=== PATIENT | female | born 1935 | race Caucasian/White ===

== ENCOUNTER 2019-07-10 15:51 | Emergency (ER) | payer OTHER ==
[2019-07-10 16:41] VITALS: TEMP 98; BMI 26.5
[2019-07-10] MEDS ORDERED: LIDOCAINE HCL 2% (20ML MULTI-DOSE VIAL) ONE (18:27)
--- NOTE | 2019-07-10 18:33 | PN ---
Progress Note (short form) - Note Progress Note: Pt seen and examined in the ER. She is an 83 year old female patient with Parkinson's, a resting tremor, (other?) who fell today, sustaining an injury to her left wrist. AVSS PE Pt in NAD, A and O x 3. Left wrist + moderate swelling LUE is grossly NVI. Limited ROM bc of pain. X-rays Show a highly comminuted, displaced, intra articular left distal radius fracture. Imp 83 yo R hand dom F with Parkinson's disease, a resting tremor and a displaced, intra articular left distal radius fracture. Rec We discussed the options. I am not recommending surgery for her, although I did tell her that her results would likely be better with surgery than without. A closed reduction was performed in the ER after a hematoma block with 10cc 2% Lidocaine was done. Put into a provisional volar splint. Sling, elevation. F/U in my office this or friday for another closed reduction and casting, after the swelling has subsided.
--- NOTE | 2019-07-10 18:49 | PDOC ---
Documentation entered by Linsey Rahman SCRIBE, acting as scribe for Tam Kay MD. Tam Kay MD: This documentation has been prepared by the Josiah carcamo Maria, SCRIBE, under my direction and personally reviewed by me in its entirety. I confirm that the documentation accurately reflects all work, treatment, procedures, and medical decision making performed by me. History of Present Illness - General Chief Complaint: Injury Stated Complaint: FELL OUT OF BED, LEFT ARM BROKEN - History of Present Illness Initial Comments: 07/10/19 16:47 Patient is an 83 year old female with a significant PMH of HTN, Parkinson's disease, PVD, GERD, DVT (coumadin) depression, and seizures who presents to the ED, via EMS from [facility] s/p fall. Patient states she was in bed last night trying to reach for something when she fell on her left wrist, denies head injury or LOC. Patient states she had a headache after falling last night and this morning. Patient states chronic left hip pain, denies new or worsening pain. She denies any trauma to her head. She denies recent fevers, chills, or dizziness. She denies recent nausea, vomiting, diarrhea or constipation. She denies recent dysuria, frequency, urgency or hematuria. She denies recent chest pain or shortness of breath. Allergies: Aspirin,hydrocodone Social history: Nonsmoker. Denies EtOH use and recreational drug use. PCP: Dr. Downing 07/10/19 17:12 Past History - Past Medical History Allergies/Adverse Reactions: Allergies Allergy/AdvReac Type Severity Reaction Status Date / Time aspirin Allergy Intermediate NAUSEA,VOMI Verified 03/28/16 13:53 TING hydrocodone [Hydrocodone] Allergy Intermediate NAUSEA,VOMI Verified 03/28/16 13: 53 TING Home Medications: Ambulatory Orders Carbidopa/Levodopa [Carbidopa-Levodopa 25-100 Tab] 1 each PO Q6H 06/30/16 Duloxetine HCl [Cymbalta -] 30 mg PO DAILY 06/30/16 Furosemide [Lasix -] 40 mg PO DAILY 06/30/16 Lisinopril [Prinivil] 5 mg PO DAILY 06/30/16 Meclizine HCl [Motion-Time] 25 mg PO BID 06/30/16 O'Brien-3/Dha/Epa/Fish Oil [Fish Oil 500 mg Softgel] 1 each PO BID 06/30/16 Oxybutynin Chloride [Ditropan Xl] 10 mg PO DAILY 06/30/16 Phenytoin Sodium 100 mg PO TID 06/30/16 Primidone [Mysoline] 250 mg PO BID 06/30/16 Warfarin Sodium [Coumadin] 2 mg PO ASDIR 06/30/16 Carbidopa/Levodopa 25/100 [Sinemet 25/100 -] 1 each PO QID tablet 07/01/16 Duloxetine HCl [Cymbalta -] 60 mg PO DAILY capsule. 07/01/16 Furosemide [Lasix -] 20 mg PO DAILY tablet 07/01/16 Lisinopril [Prinivil] 5 mg PO DAILY tablet 07/01/16 Meclizine HCl [Antivert -] 25 mg PO BID PRN #0 tablet 07/01/16 Phenytoin Na Extended [Dilantin -] 100 mg PO TID capsule 07/01/16 Primidone [Mysoline -] 250 mg PO BID tablet 07/01/16 Ranitidine HCl 150 mg PO DAILY 07/10/19 Anemia: No Asthma: No Cancer: No Cardiac Disorders: No CVA: No COPD: No CHF: No Dementia: No Diabetes: No GI Disorders: No Disorders: No HTN: Yes Hypercholesterolemia: No Liver Disease: No Seizures: Yes Thyroid Disease: No - Surgical History Abdominal Surgery: Yes (Hysterectomy) Appendectomy: No Cardiac Surgery: No Cholecystectomy: No Lung Surgery: No Neurologic Surgery: No Orthopedic Surgery: Yes (L TOTAL KNEE, BUNIONECTOMY (L)) - Psycho Social/Smoking Cessation Hx Smoking History: Never smoked Have you smoked in the past 12 months: No Information on smoking cessation initiated: No Hx Alcohol Use: No Drug/Substance Use Hx: No Substance Use Type: None Hx Substance Use Treatment: No Review of Systems - Review of Systems Able to Perform ROS?: Yes Comments:: 07/10/19 16:47 CONSTITUTIONAL: Absent: fever, chills, diaphoresis, generalized weakness, malaise, loss of appetite HEENT: Absent: rhinorrhea, nasal congestion, throat pain, throat swelling, difficulty swallowing, mouth swelling, ear pain, eye pain, visual Changes CARDIOVASCULAR: Absent: chest pain, syncope, palpitations, irregular heart rate, lightheadedness , peripheral edema RESPIRATORY: Absent: cough, shortness of breath, dyspnea with exertion, orthopnea, wheezing, stridor, hemoptysis GASTROINTESTINAL: Absent: abdominal pain, abdominal distension, nausea, vomiting, diarrhea, constipation, melena, hematochezia GENITOURINARY: Absent: dysuria, frequency, urgency, hesitancy, hematuria, flank pain, genital pain MUSCULOSKELETAL: +left wrist pain Absent: myalgia, arthralgia, joint swelling SKIN: Absent: rash, itching, pallor HEMATOLOGIC/IMMUNOLOGIC: Absent: easy bleeding, easy bruising, lymphadenopathy, frequent infections ENDOCRINE: Absent: unexplained weight gain, unexplained weight loss, heat intolerance, cold intolerance NEUROLOGIC: Absent: headache, focal weakness or paresthesias, dizziness, unsteady gait, seizure, mental status changes, bladder or bowel incontinence PSYCHIATRIC: Absent: anxiety, depression, suicidal or homicidal ideation, hallucinations. *Physical Exam - Vital Signs Last Vital Signs Temp Pulse Resp BP Pulse Ox 98 F 71 20 150/59 L 98 07/10/19 15:51 07/10/19 15:51 07/10/19 15:51 07/10/19 15:51 07/10/19 15:51 - Physical Exam 07/10/19 16:48 GENERAL: Well developed, well nourished. Awake and alert. No acute distress. HEENT: Normocephalic, atraumatic. PERRLA, EOMI. No conjunctival pallor. Sclera are non- icteric. Moist mucous membranes. Oropharynx is clear. NECK: Supple. Full ROM. No JVD. CARDIOVASCULAR: Regular rate and rhythm. No murmurs, rubs, or gallops. PULMONARY: No evidence of respiratory distress. Lungs clear to auscultation bilaterally. No wheezing, rales or rhonchi. ABDOMINAL: Soft. Non-tender. Non-distended. MUSCULOSKELETAL +right wrist swelling,moderate to severe +no sensory deficit to fingers Normal range of motion at all joints. No bony deformities or tenderness. No CVA tenderness. EXTREMITIES: No cyanosis. No clubbing. No edema. No calf tenderness. SKIN: Warm and dry. Normal capillary refill. No rashes. No jaundice. NEUROLOGICAL: Alert, awake, appropriate. Cranial nerves 2-12 intact. PSYCHIATRIC: Cooperative. Good eye contact. Appropriate mood and affect. ED Treatment Course - RADIOLOGY Radiology Studies Ordered: Category Date Time Status WRIST-LEFT [RAD] Stat Radiology 07/10/19 16:57 Ordered Medical Decision Making - Medical Decision Making 07/10/19 17:00 Rolled out of bed last night, injuring her left wrist. No history of injury or sign of injury to the head neck chest abdomen spine pelvis or other extremities. Physical findings limited to the left wrist which include deformity of distal radius, tenderness, and swelling. Pulses are full. No distal sensory or motor deficits. Capillary refill intact. X-ray: Displaced fracture of the distal radius with dorsal angulation of the distal fragment, and considerable impaction. Volar splint applied. 07/10/19 17:38 Dr. Karel richards, orthopedics on-call, was paged and awaiting return call. 07/10/19 18:47 Dr. Puga evaluated the patient in the emergency room. Closed reduction was performed using a hematoma block. The patient tolerated the procedure well. Postreduction x-ray was adequate. Volar splint was applied. Pulses were full, there was no distal numbness or tingling, and capillary refill is intact after splinting. Rest ice and elevation was recommended. Dr. Puga will follow in his office in 3 to 5 days. Patient in no significant pain or other distress at discharge to follow-up as directed. 07/10/19 18:49 Discharge - Discharge Information Problems reviewed: Yes Clinical Impression/Diagnosis: Fracture of wrist Qualifiers: Encounter type: initial encounter Fracture type: closed Laterality: left Qualified Code(s): S62.102A - Fracture of unspecified carpal bone, left wrist, initial encounter for closed fracture Condition: Improved Disposition: HOME - Admission No - Follow up/Referral Referrals: Sarkis Puga MD [Staff Physician] - 3 days - Patient Discharge Instructions Patient Printed Discharge Instructions: DI for Wrist Fracture, How to Take Care of Your Splint Additional Instructions: Rest, ice, elevate, splint. Tylenol every 4 hours for pain as needed. Follow-up with Dr. Puga, orthopedic surgeon, in 3 to 4 days at the office for further evaluation and treatment. - Post Discharge Activity
[2019-07-10 20:28] VITALS: BP 141/55; PULSE 75
== END 2019-07-10 20:24 | disposition home or self-care (01) ==
LOC: FER 15:51
PROC: 0PSJXZZ Reposition Left Radius, External Approach (ICD-10-PCS; principal; 2019-07-10)
DX: S52.502A Unspecified fracture of the lower end of left radius, initial encounter for closed fracture (principal); W06.XXXA Fall from bed, initial encounter; Y93.89 Activity, other specified; Y92.092 Bedroom in other non-institutional residence as the place of occurrence of the external cause; I10 Essential (primary) hypertension; G20 Parkinson's disease; K21.9 Gastro-esophageal reflux disease without esophagitis; Z86.718 Personal history of other venous thrombosis and embolism; Z79.01 Long term (current) use of anticoagulants
CPT/HCPCS: 73110-TC-LT-FY; 99283-25

== ENCOUNTER → 2019-08-16 | Emergency (ER) | payer OTHER ==
[2019-08-16 21:11] VITALS: TEMP 99.3; BMI 35.4
--- NOTE | 2019-08-16 21:24 | PDOC ---
Documentation entered by Caitie Moreno SCRIBE, acting as scribe for Marichuy Posey MD. Marichuy Posey MD: This documentation has been prepared by the Tiffanie carcamo Nirvannie, SCRIBE, under my direction and personally reviewed by me in its entirety. I confirm that the documentation accurately reflects all work, treatment, procedures, and medical decision making performed by me. Attending Attestation - Resident Resident Name: Thomas Bardales - ED Attending Attestation I have performed the following: I have examined & evaluated the patient, The case was reviewed & discussed with the resident, I agree w/resident's findings & plan, Exceptions are as noted - HPI HPI: 08/16/19 21:11 Patient is an 83 year old female with a significant PMH of HTN, Parkinson's disease, PVD, GERD, DVT (coumadin) depression, and seizures who presents to the ED, via EMS from [facility] with intermittent AMS. Allergies: Aspirin,hydrocodone PCP: Dr. Jain Advanced Directives: DNR/DNI 08/16/19 21:12 According to the healthcare proxy this patient has had increasing altered mental status that is actually waxed and waned since last Friday. Dr. Estrada saw her today noticed that there did not seem to be any focality to her weakness so he did not think she had a stroke but maybe she had an infection She actually did get a fever yesterday and they checked a UA and stated she had a UTI and so they started her on some antibiotics - Physicial Exam PE: 08/16/19 21:14 Well-nourished well-developed 83-year-old female who is currently not conversant Head no scalp lacerations or hematomas appreciated Neck no JVD Lungs no crackles or wheezing CVS regular rate rhythm S1-S2 Abdomen is protuberant but soft Skin is warm and dry Neuro patient appears to be somnolent, nonverbal and according to her nuclear medical technologist she is basically nonambulatory with advanced Parkinson's and uses a wheelchair - Medical Decision Making 08/16/19 21:15 83-year-old female male brought in by ambulance from [facility] for 1 week of increasing unresponsiveness She was found to have some bacteria in the urine and antibiotics were started yesterday After speaking to the healthcare proxy their wishes are that we find if she has an infection or recent stroke so they know what they are being faced with and can share this information with the patient's family in [place] So currently we will look for pneumonia or UTI / start antibiotics and these antibiotics can be continued back at the alf They have given her IV fluids over the past week because of her decreased p.o. intake and therefore for found that she has some dehydration she can receive IV fluids at [facility] 08/16/19 23:06 This patient is a do not hospitalize, DO NOT INTUBATE, DO NOT RESUSCITATE but the do not hospitalize was rescinded by her healthcare proxy this evening to bring her here to have studies to see the reason for her altered mental status CAT scan of the head shows chronic and acute large subdural hematomas bilaterally This was discussed with the PCP Dr. Duane Jain he We also discussed this with healthcare proxy and currently the plan is to run it by the neurosurgeon to see their options Healthcare proxy really does not want any significant surgery Patient is on Coumadin and the INR is 1.38 Patient has had reported falls in the past 4 weeks Past medical history Parkinson's, dementia 08/17/19 00:20 Pt has been on coumadin for DVT and of course the Coumadin will be WITHHELD IMPression bilateral acute and chronic subdural hematomas, UTI in a patient with advanced Parkinson's and dementia who is DNR/DNI The findings of the imaging studies and labs were discussed with a healthcare proxy and the primary care physician and it was decided that no aggressive treatment would be pursued at this time We will continue to treat her urinary tract infection with antibiotics that will be continued back at the alf D/C back to alf
[2019-08-16 22:16] LABS: VENOUS PC02 32.4 mmHg (38-52); VENOUS PH 7.48 (7.31-7.41); VENOUS PO2 81.1 mmHg (28-48)
[2019-08-16 22:17] LABS: BASO % 0.6 % (0-2.0); EOS % 0.3 % (0-4.5); HEMATOCRIT 42.9 % (32.4-45.2); HEMOGLOBIN 14.7 GM/dL (10.7-15.3); MCH 32.4 pg (25.7-33.7); MCHC 34.3 g/dl (32.0-36.0); MEAN CELL VOLUME 94.4 fl (80-96); MEAN PLT VOLUME 8.3 fl (7.5-11.1); MONO % 8.6 % (3.8-10.2); NEUT % 80.5 % (42.8-82.8); PLATELET COUNT 297 K/MM3 (134-434); RBC 4.55 M/mm3 (3.60-5.2); RDW 12.9 % (11.6-15.6); WHITE BLOOD COUNT 12.7 K/mm3 (4.0-10.0)
[2019-08-16 22:28] LABS: INR 1.38 (0.83-1.09); PROTHROMBIN TIME (PATIENT) 16.3 SEC (9.7-13.0)
[2019-08-16 22:31] LABS: ACTIVATED PTT 26.9 SECONDS (25.2-36.5)
[2019-08-16 22:52] LABS: ALBUMIN 2.9 g/dl (3.4-5.0); BILIRUBIN,TOTAL 0.6 mg/dL (0.2-1); BLOOD UREA NITROGEN 9.1 mg/dL (7-18); CALCIUM 8.4 mg/dL (8.5-10.1); CREATININE 0.4 mg/dL (0.55-1.3); POTASSIUM 3.3 mmol/L (3.5-5.1); TOT PROT 6.8 g/dl (6.4-8.2)
--- NOTE | 2019-08-16 23:20 | PDOC ---
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 She is unable to provide history secondary to AMS. She is accompanied by her health care proxy. Per health care proxy, patient remains DNR/DNI, but they will renege the Do Not Hospitalize decision at this time pending evaluation. Per health care proxy, Ms. Harding is alert, interactive at baseline and was recently speaking full sentences, however for the last week she has been somnolent, with intermittent alertness. She is able to track to voice with her eyes, but at this time is nonverbal. She fell around [place], injuring her L arm which remains casted. At [facility] she had a measured fever yesterday, and urine evaluated at that time showed signs of UTI. PCP - Dr. Duane Jain Timing/Duration: 1 week Past History - Past Medical History Allergies/Adverse Reactions: Allergies Allergy/AdvReac Type Severity Reaction Status Date / Time aspirin Allergy Intermediate NAUSEA,VOMI Verified 08/16/19 21:12 TING hydrocodone [Hydrocodone] Allergy Intermediate NAUSEA,VOMI Verified 08/16/19 21: 12 TING Home Medications: Ambulatory Orders Furosemide [Lasix -] 40 mg PO DAILY 06/30/16 Meclizine HCl [Motion-Time] 25 mg PO BID 06/30/16 Ashkum-3/Dha/Epa/Fish Oil [Fish Oil 500 mg Softgel] 1 each PO BID 06/30/16 Oxybutynin Chloride [Ditropan Xl] 10 mg PO DAILY 06/30/16 Warfarin Sodium [Coumadin] 2.5 mg PO ASDIR 06/30/16 Carbidopa/Levodopa 25/100 [Sinemet 25/100 -] 1 each PO QID tablet 07/01/16 Lisinopril [Prinivil] 5 mg PO DAILY tablet 07/01/16 Phenytoin Na Extended [Dilantin -] 100 mg PO TID capsule 07/01/16 Primidone [Mysoline -] 250 mg PO BID tablet 07/01/16 Ranitidine HCl 150 mg PO DAILY 07/10/19 Acetaminophen [Tylenol -] 650 mg PO BID 08/16/19 Acetaminophen [Tylenol -] 650 mg PO Q8H PRN 08/16/19 Benzocaine/Menthol [Cepacol Sore Throat Lozenge] 1 each MM Q2H PRN 08/16/19 Bupropion HCl [Wellbutrin Xl -] 150 mg PO DAILY 08/16/19 Cholecalciferol (Vitamin D3) [Vitamin D3 -] 1,000 unit PO DAILY 08/16/19 Docusate Sodium [Colace] 100 mg PO TID 08/16/19 Duloxetine HCl [Cymbalta -] 90 mg PO DAILY 08/16/19 Loperamide HCl [Loperamide] 2 mg PO Q4H PRN 08/16/19 Mag Hydrox/Aluminum Hyd/Simeth [Antacid-Simethicone Liquid] 30 ml PO Q4H PRN 01/28 Ondansetron [Zofran -] 4 mg PO Q4H PRN 08/16/19 Warfarin Sodium [Coumadin] 2 mg PO ASDIR 08/16/19 Anemia: No Asthma: No Cancer: No Cardiac Disorders: No CVA: No COPD: No CHF: No Dementia: No Diabetes: No GI Disorders: Yes (GERD) Disorders: No HTN: Yes Hypercholesterolemia: No Liver Disease: No Psychiatric Problems: Yes (major depressive disorder) Seizures: Yes Thyroid Disease: No Other medical history: Parkinson's Disease, PVD - Surgical History Abdominal Surgery: Yes (Hysterectomy) Appendectomy: No Cardiac Surgery: No Cholecystectomy: No Lung Surgery: No Neurologic Surgery: No Orthopedic Surgery: Yes (L TOTAL KNEE, BUNIONECTOMY (L)) - Psycho Social/Smoking Cessation Hx Smoking History: Unknown if ever smoked Have you smoked in the past 12 months: No Hx Alcohol Use: No Drug/Substance Use Hx: No Substance Use Type: None Hx Substance Use Treatment: No Review of Systems - Review of Systems Able to Perform ROS?: No (AMS) *Physical Exam - Vital Signs Last Vital Signs Temp Pulse Resp BP Pulse Ox 99.3 F 78 20 164/62 96 08/16/19 21:00 08/16/19 21:00 08/16/19 21:00 08/16/19 21:00 08/16/19 21:00 - Physical Exam 08/16/19 23:50 PE: GENERAL: Somnolent, opens eyes HEAD: No signs of trauma, normocephalic, atraumatic EYES: PERRLA, EOMI, sclera anicteric, conjunctiva clear ENT: Auricles normal inspection, hearing grossly normal, nares patent, oropharynx clear without exudates. Moist mucosa NECK: Normal ROM, supple, no lymphadenopathy, JVD, or masses LUNGS: No distress, clear to auscultation bilaterally HEART: Regular rate and rhythm, normal S1 and S2, no murmurs, rubs or gallops, peripheral pulses normal and equal bilaterally. ABDOMEN: Soft, nontender, normoactive bowel sounds. No guarding, no rebound. No masses EXTREMITIES : LUE forearm in cast. Normal inspection, Normal range of motion, no edema. No clubbing or cyanosis NEUROLOGICAL: Unable to assess. SKIN: Warm, Dry, normal turgor, no rashes or lesions noted ED Treatment Course - LABORATORY CBC & Chemistry Diagram: 08/16/19 22:05 08/16/19 22:05 - ADDITIONAL ORDERS Additional order review: Laboratory Results 08/16/19 08/16/19 08/16/19 22:05 22:05 22:05 PT with INR INR PTT (Actin FS) VBG pH 7.48 H POC VBG pCO2 32.4 L POC VBG pO2 81.1 H VBG HCO3 23.9 VBG O2 Sat (Suma) 97.0 H VBG Base Excess 1.5 Sodium Potassium Chloride Carbon Dioxide Anion Gap BUN Creatinine Est GFR (CKD-EPI)AfAm Est GFR (CKD-EPI)NonAf Random Glucose Lactic Acid 0.9 Calcium Total Bilirubin AST ALT Alkaline Phosphatase Troponin I Total Protein Albumin Phenytoin 3.1 08/16/19 08/16/19 08/16/19 22:05 22:05 22:05 PT with INR 16.30 H INR 1.38 H PTT (Actin FS) 26.9 VBG pH POC VBG pCO2 POC VBG pO2 VBG HCO3 VBG O2 Sat (Suma) VBG Base Excess Sodium 138 Potassium 3.3 L Chloride 106 Carbon Dioxide 24 Anion Gap 9 BUN 9.1 Creatinine 0.4 L Est GFR (CKD-EPI)AfAm 111.63 Est GFR (CKD-EPI)NonAf 96.32 Random Glucose 137 H Lactic Acid Calcium 8.4 L Total Bilirubin 0.6 AST 27 ALT 25 Alkaline Phosphatase 100 Troponin I 0.15 H Total Protein 6.8 Albumin 2.9 L Phenytoin 08/16/19 22:05 RBC 4.55 MCV 94.4 MCHC 34.3 RDW 12.9 MPV 8.3 Neutrophils % 80.5 D Lymphocytes % 10.0 D Monocytes % 8.6 Eosinophils % 0.3 Basophils % 0.6 - RADIOLOGY Radiology Studies Ordered: Category Date Time Status HEAD CT WITHOUT CONTRAST [CT] Stat CT Scan 08/16/19 21:07 Completed CHEST X-RAY PORTABLE* [RAD] Stat Radiology 08/16/19 21:01 Taken Medical Decision Making - Medical Decision Making 83F w/hx Parkinson's dementia, HTN, peripheral vascular disease on coumadin, recent fall with forearm fracture p/w one week of somnolence, AMS. Differential includes UTI worsening mental status vs other infectious source. ICH also possible given recent fall on coumadin. Plan: CBC CMP EKG CXR Cardiac Profile CT Head w/o contrast VBG Lactate Acetaminophen 1g Straight cath UA Urine culture Dispo: Pending imaging, reassessment --- Radiologist called with critical read on head CT. Large bilateral acute on chronic subdural hemorrhages noted. --- Case discussed with Dr. Duane Jain. Plan to discuss with neurosurgery, as well as health care proxy. Patient unlikely to improve with surgery given large risks for neurosurgical intervention. If no surgical intervention, plan for evaluation of presumed UTI with discharge back to [facility] with abx. 08/16/19 23:[address] Torres. Options for chronic bleed include kush hole drain placement. Acute bleed management would require at least small craniotomy. Large risk to patient given clinical condition, dementia, and would require reversal of DNR, DNI at least for procedure. Difficult to assess possible benefit to patient. --- Discussed with health care proxy. They understand what surgery would require and elect not to pursue surgical intervention. Plan for straight cath for urine sample, abx treatment for UTI, then discharge and transfer back to [facility]. 08/17/19 00:04 UA showing 2+ leuk esterase. Plan to continue abx initiated at [facility]. Plan for discharge, transfer back to [facility]. Discharge - Discharge Information Problems reviewed: Yes Clinical Impression/Diagnosis: Subdural hematoma UTI (urinary tract infection) Qualifiers: Urinary tract infection type: acute cystitis Hematuria presence: without hematuria Qualified Code(s): N30.00 - Acute cystitis without hematuria Condition: Stable Disposition: HOME - Admission No - Follow up/Referral Referrals: Duane Jain MD [Primary Care Provider] - - Patient Discharge Instructions Patient Printed Discharge Instructions: DI for Urinary Tract Infection (UTI), DI for Subdural Hematoma Additional Instructions: Sister Mehdi was seen in the Emergency Department for altered mental status. As discussed, her head CT scan showed a large bleed between her brain and her skull. There were both old and new bleeds present, that would require both a surgical drain placed in her skull to remove the old blood, and a craniotomy ( where a piece of the skull is removed temporarily while the bleed is cleared surgically). We discussed with both Dr. Jain (her primary care physician) and Dr. Torres (our brain surgeon). We discussed the possible options moving forward, and the risks of surgery. We found an infection in her urine - please continue the antibiotic that she was started on yesterday at [facility] and discuss with Dr. Jain as needed. - Post Discharge Activity
[2019-08-16 23:58] LABS: EPI CELLS 1.3 /HPF (0-5/HPF); HYALINE CASTS 120 /lpf (0-8); PH,URINE 5.5 (5.0-8.0); URINE APPEARANCE CLOUDY; URINE BACTERIA 7.9 /hpf (NEGATIVE); URINE BILIRUBIN NEGATIVE (NEGATIVE); URINE COLOR DK YELLOW; URINE GLUCOSE (UA) NEGATIVE (NEGATIVE); URINE KETONE NEGATIVE (NEGATIVE); URINE LEUK ESTERASE 2+ (NEGATIVE); URINE NITRITE NEGATIVE (NEGATIVE); URINE PROTEIN 1+ (NEGATIVE); URINE RBC 2 /hpf (0-4); URINE WBC 124 /hpf (0-5)
[2019-08-17 01:42] VITALS: BP 169/67; PULSE 81
--- NOTE | 2019-08-17 09:29 | EKG ---
Test Reason : Blood Pressure : / mmHG Vent. Rate : 083 BPM Atrial Rate : 083 BPM P-R Int : 128 ms QRS Dur : 086 ms QT Int : 410 ms P-R-T Axes : 042 -10 004 degrees QTc Int : 481 ms SINUS RHYTHM WITH PREMATURE SUPRAVENTRICULAR COMPLEXES AND WITH OCCASIONAL PREMATURE VENTRICULAR COMPLEXES MODERATE VOLTAGE CRITERIA FOR LVH, MAY BE NORMAL VARIANT BORDERLINE ECG Confirmed by Lobo Fraga MD ([id number]) on 08/17/2019 9:29:11 AM Referred By: Confirmed By:Lobo Fraga MD
== END ==
LOC: SUPCPDRO 20:49 → JER 20:49
DX: S06.5X9A Traumatic subdural hemorrhage with loss of consciousness of unspecified duration, initial encounter (principal); X58.XXXA Exposure to other specified factors, initial encounter; Y93.89 Activity, other specified; Y92.128 Other place in nursing home as the place of occurrence of the external cause; Y99.8 Other external cause status; N30.00 Acute cystitis without hematuria; G31.83 Neurocognitive disorder with Lewy bodies; F02.80 Dementia in other diseases classified elsewhere, unspecified severity, without behavioral disturbance, psychotic disturbance, mood disturbance, and anxiety; I10 Essential (primary) hypertension; I73.9 Peripheral vascular disease, unspecified; Z79.01 Long term (current) use of anticoagulants; Z87.81 Personal history of (healed) traumatic fracture; Z88.5 Allergy status to narcotic agent; Z88.6 Allergy status to analgesic agent; Z66 Do not resuscitate
CPT/HCPCS: 36415; 70450-TC; 71045-TC-FY; 80053; 80185; 81003; 82803; 83605; 84484; 85025; 85610; 85730; 87040; 87086; 93005; 93010; 99283-25